=== PATIENT | male | born 1960 | race African-American/Black ===

== ENCOUNTER 2017-06-10 16:35 | Inpatient (IN) ==
[2017-06-10] MEDS ORDERED: ACETAMINOPHEN 325 MG TABLET PO PRN (20:16)
[2017-06-10] MEDS ORDERED: ONDANSETRON 4 MG/2 ML VIAL IV PRN (20:16)
[2017-06-10] MEDS: ASPIRIN CHEW 81 MG TABLET PO SCH (21:47)
[2017-06-10] MEDS: LOSARTAN 50 MG TABLET PO SCH (21:47)
[2017-06-10] MEDS: ENOXAPARIN 40 MG/0.4 ML SYRINGE SUBCUT SCH (21:48)
[2017-06-11] MEDS: hydrALAZINE 20 MG/1 ML VIAL IV PRN ×2 (04:35→15:52)
[2017-06-11 05:56] LABS: Basophils # 0.1 10*3/uL (0.0-0.2); Basophils % 0.7 % (0.0-0.8); Eosinophils # 0.2 10*3/uL (0.0-0.87); Eosinophils % 2.7 % (0.00-10.9); Hematocrit 39.1 VOL% (42.0-52.0); Immature Granulocytes % 0.4 %; Immature Granulocytes Absolute 0.03 #; Lymphocytes # 1.4 10*3/uL (1.4-4.0); Lymphocytes % 18.6 % (21.2-54.2); Mean Corpuscular HGB Conc 33.2 GM/DL (32-36); Mean Corpuscular Hemoglobin 26 PG (27-34); Mean Corpuscular Volume 76.7 FL (87-102); Mean Platelet Volume 10.5 FL (9.6-12.0); Monocytes # 0.8 10*3/uL (0.11-0.8); Monocytes % 10.9 % (1.7-12.7); Neutrophils # 5.1 10*3/uL (1.4-7.4); Neutrophils % 66.7 % (38.7-73.9); Platelet Count 278 T/CUMM (130-400); Red Cell Distribution Width 15.2 % (9.3-17.3); White Blood Count 7.6 T/CUMM (4-12)
[2017-06-11 06:37] LABS: Bilirubin,Total 2.2 MG/DL (0.2-1.0); Calcium 8.8 MG/DL (8.5-10.1); Potassium 3.5 MMOL/L (3.5-5.1); Total Protein 6.1 G/DL (6.4-8.3)
[2017-06-11 09:00] LABS: Troponin I Only 0.069 NG/ML (0.00-0.045)
[2017-06-11] MEDS ORDERED: LOSARTAN 50 MG TABLET PO SCH (09:00)
[2017-06-11] MEDS: ASPIRIN CHEW 81 MG TABLET PO SCH (09:13)
[2017-06-11] MEDS: LOSARTAN 50 MG TABLET PO SCH (09:13)
[2017-06-11] MEDS: PANTOPRAZOLE 40 MG TABLET PO SCH (09:13)
[2017-06-11] MEDS: FUROSEMIDE 40 MG/4 ML VIAL IV SCH ×2 (09:13→15:52)
[2017-06-11] MEDS: CARVEDILOL 6.25 MG TABLET PO SCH ×2 (14:19→20:53)
[2017-06-11 16:26] LABS: Apearance,Urine CLEAR (Clear); Bilirubin,Urine Negative (Negative); Blood, Urine Small mg/dL (Negative); Glucose,Urine (UA) Negative (Negative); Ketones,Urine Negative (Negative); Nitrite,Urine Negative (Negative); Protein,Urine 100 MG/DL; RBC,Urine 1 /HPF (0-4); Urine Color Yellow (Yellow); Urine Specific Gravity 1.008 (1.001-1.035); WBC,Urine 1 /HPF (0-6)
[2017-06-11 16:45] LABS: Protein/Creatinine Ratio,Urine 1.3 RATIO
[2017-06-11 20:33] LABS: Troponin I Only 0.072 NG/ML (0.00-0.045)
[2017-06-11] MEDS: ENOXAPARIN 40 MG/0.4 ML SYRINGE SUBCUT SCH (20:52)
[2017-06-12 04:58] LABS: Basophils # 0.1 10*3/uL (0.0-0.2); Basophils % 0.9 % (0.0-0.8); Eosinophils # 0.3 10*3/uL (0.0-0.87); Eosinophils % 3.8 % (0.00-10.9); Immature Granulocytes % 0.3 %; Immature Granulocytes Absolute 0.02 #; Lymphocytes # 1.5 10*3/uL (1.4-4.0); Lymphocytes % 20.8 % (21.2-54.2); Mean Corpuscular HGB Conc 33.3 GM/DL (32-36); Mean Corpuscular Hemoglobin 26 PG (27-34); Mean Corpuscular Volume 76.5 FL (87-102); Mean Platelet Volume 10.7 FL (9.6-12.0); Monocytes # 0.8 10*3/uL (0.11-0.8); Neutrophils # 4.7 10*3/uL (1.4-7.4); Neutrophils % 63.2 % (38.7-73.9); Platelet Count 277 T/CUMM (130-400); Red Cell Distribution Width 15.1 % (9.3-17.3); White Blood Count 7.4 T/CUMM (4-12)
[2017-06-12 05:32] LABS: Calcium 8.9 MG/DL (8.5-10.1); Magnesium 1.8 MG/DL (1.8-2.4); Osmolality,Calculated 281.1 MOS/KG (273-304); Potassium 3.5 MMOL/L (3.5-5.1)
[2017-06-12 05:42] LABS: Risk Ratio 3.03; VLDL CHOLESTEROL 14.4 MG/DL
[2017-06-12] MEDS: FUROSEMIDE 40 MG/4 ML VIAL IV SCH ×2 (09:49→15:32)
[2017-06-12] MEDS: LOSARTAN 50 MG TABLET PO SCH (09:49)
[2017-06-12] MEDS: ASPIRIN CHEW 81 MG TABLET PO SCH (09:49)
[2017-06-12] MEDS: PANTOPRAZOLE 40 MG TABLET PO SCH (09:49)
[2017-06-12] MEDS: CARVEDILOL 6.25 MG TABLET PO SCH (09:49)
[2017-06-12] MEDS: amLODIPine 5 MG TABLET PO SCH (15:32)
[2017-06-12] MEDS ORDERED: ALBUTEROL/IPRATROPIUM 3 ML NEB RESP TX PRN (16:12)
[2017-06-12] MEDS: ENOXAPARIN 40 MG/0.4 ML SYRINGE SUBCUT SCH (20:18)
[2017-06-13] MEDS: hydrALAZINE 20 MG/1 ML VIAL IV PRN ×3 (00:17→17:16)
[2017-06-13] MEDS: LOSARTAN 50 MG TABLET PO SCH (08:09)
[2017-06-13] MEDS: amLODIPine 5 MG TABLET PO SCH (08:10)
[2017-06-13] MEDS: FUROSEMIDE 20 MG TABLET PO SCH ×2 (08:10→17:16)
[2017-06-13] MEDS: PANTOPRAZOLE 40 MG TABLET PO SCH (08:10)
[2017-06-13] MEDS: ASPIRIN CHEW 81 MG TABLET PO SCH (08:10)
[2017-06-13] MEDS ORDERED: amLODIPine 10 MG TABLET PO SCH (10:41)
[2017-06-13] MEDS: ALBUTEROL/IPRATROPIUM 3 ML NEB RESP TX SCH ×4 (11:05→23:48)
[2017-06-13] MEDS: ENOXAPARIN 40 MG/0.4 ML SYRINGE SUBCUT SCH (20:52)
[2017-06-14] MEDS: hydrALAZINE 20 MG/1 ML VIAL IV PRN ×2 (00:39→05:26)
[2017-06-14] MEDS: ALBUTEROL/IPRATROPIUM 3 ML NEB RESP TX SCH (07:50)
[2017-06-14] MEDS: LOSARTAN 50 MG TABLET PO SCH (08:52)
[2017-06-14] MEDS: FUROSEMIDE 20 MG TABLET PO SCH (08:53)
[2017-06-14] MEDS: ASPIRIN CHEW 81 MG TABLET PO SCH (08:53)
[2017-06-14] MEDS: PANTOPRAZOLE 40 MG TABLET PO SCH (08:53)
[2017-06-14 14:06] VITALS: BP 140/92
== END 2017-06-14 16:54 | disposition home or self-care (01) | DRG 293 ==
LOC: N.TELES 17:59 → SUATTDRO 17:59
PROVIDERS: ADMIT Internal Medicine; ATTEND Internal Medicine